=== PATIENT | female | born 1985 | race Caucasian/White ===

== ENCOUNTER 2016-11-25 13:18 | Emergency (ER) | payer OTHER ==
[~2016-11-25] VITALS: Ht 167.6 cm; Wt 100.0 kg
[~2016-11-25 13:18] MED LIST: FLUO20CA4 PO; LAMO100 PO; LEVO125T4 PO; LITH450T PO; LURA1TAB2 PO; METO50TA11 PO
[2016-11-25 13:24] VITALS: BP 168/89; PULSE 50; RESP 18; TEMP 98.4; O2SAT 100
--- NOTE | 2016-11-25 14:34 | PD ---
HPI Chief Complaint: Psychiatric Symptoms Time Seen by Provider: 14:34 Travel History International Travel<30 days: No Contact w/Intl Traveler<30days: No Traveled to known affect area: No History of Present Illness HPI 31-year-old female brought in from local halfway with reports of suicidal ideation. Patient has a history of bipolar disorder and major depression. Patient states she wrote a "threatening letter" and was sent here to be evaluated. Patient also states "I don't want to be Eastman acted". Patient reports a history of swallowing a plastic education Approximately 10 days ago and is concerned that it may be stuck in her abdomen. Patient has chronic histories of constipation but denies nausea, vomiting, or diarrhea or constipation more than usual. Patient states she is hungry. She is tearful. She is allergic to Ceclor and Tylenol. PFSH Past Medical History Bipolar Disorder: Yes Cerebral Palsy: Yes Psychiatric: Yes (See EMR, Depression, OCD, anxiety, Bipolar Disorder) Reproductive: No Immunizations Current: Yes ?: Not Past Surgical History Other Surgery: No Social History Alcohol Use: No Tobacco Use: Yes (a couple today) Substance Use: No Allergies-Medications (Allergen,Severity, Reaction): Coded Allergies: Ceclor (Verified Allergy, Unknown, 07/01/16) Tylenol (Verified Allergy, Unknown, 07/01/16) Reported Meds & Prescriptions Reported Meds & Active Scripts Active Reported Fluoxetine (Fluoxetine HCl) 20 Mg Cap 20 Mg PO DAILY Levothyroxine (Levothyroxine Sodium) 125 Mcg Tab 125 Mcg PO DAILY@0600 Lamictal (Lamotrigine) 100 Mg Tab 200 Mg PO Q12HR Review of Systems Except as stated in HPI: all other systems reviewed are Neg General / Constitutional: No: Fever Eyes: No: Visual changes HENT: No: Headaches Cardiovascular: No: Chest Pain or Discomfort Respiratory: No: Shortness of Breath Gastrointestinal: No: Abdominal Pain Genitourinary: No: Dysuria Musculoskeletal: No: Pain Skin: No Rash Neurologic: No: Weakness Psychiatric: No: Depression Endocrine: No: Polydipsia Hematologic/Lymphatic: No: Easy Bruising Physical Exam Narrative GENERAL: Patient appears somewhat depressed and tearful but otherwise no acute distress. SKIN: Warm and dry. Normal color. Normal turgor. HEAD: Atraumatic. Normocephalic. EYES: Pupils equal and round. No scleral icterus. No injection or drainage. ENT: No nasal bleeding or discharge. Mucous membranes pink and moist. Pharynx is normal. Airway is normal. NECK: Trachea midline. No JVD. CARDIOVASCULAR: Regular rate and rhythm. RESPIRATORY: No accessory muscle use. Clear to auscultation. Breath sounds equal bilaterally. GASTROINTESTINAL: Abdomen soft, non-tender, nondistended. Hepatic and splenic margins not palpable. No CVA tenderness. Normal bowel sounds throughout all quadrants. MUSCULOSKELETAL: Extremities without clubbing, cyanosis, or edema. No obvious deformities. NEUROLOGICAL: Awake and alert. No obvious cranial nerve deficits. Motor grossly within normal limits. Five out of 5 muscle strength in the arms and legs. Normal speech. PSYCHIATRIC: Appropriate mood and affect; insight and judgment normal. Data Data Last Documented VS Vital Signs Date Time Temp Pulse Resp B/P Pulse Ox O2 Delivery O2 Flow Rate FiO2 11/25/16 13:24 98.4 50 18 168/89 100 Room Air Orders Complete Blood Count With Diff (11/25/16 14:39) Comprehensive Metabolic Panel (11/25/16 14:39) Urinalysis - C+S If Indicated (11/25/16 14:39) Drug Screen, Random Urine (11/25/16 14:39) Ed Urine Pregnancytest Poc (11/25/16 14:39) Psych Screen (11/25/16 14:39) Abdomen, Upright Only (11/25/16 14:39) Labs Laboratory Tests Test 11/25/16 15:15 White Blood Count 3.8 TH/MM3 Red Blood Count 4.23 MIL/MM3 Hemoglobin 14.1 GM/DL Hematocrit 41.7 % Mean Corpuscular Volume 98.6 FL Mean Corpuscular Hemoglobin 33.4 PG Mean Corpuscular Hemoglobin 33.9 % Concent Red Cell Distribution Width 14.5 % Platelet Count 106 TH/MM3 Mean Platelet Volume 9.2 FL Neutrophils (%) (Auto) 60.3 % Lymphocytes (%) (Auto) 31.5 % Monocytes (%) (Auto) 5.5 % Eosinophils (%) (Auto) 2.3 % Basophils (%) (Auto) 0.4 % Neutrophils # (Auto) 2.3 TH/MM3 Lymphocytes # (Auto) 1.2 TH/MM3 Monocytes # (Auto) 0.2 TH/MM3 Eosinophils # (Auto) 0.1 TH/MM3 Basophils # (Auto) 0.0 TH/MM3 CBC Comment DIFF FINAL Differential Comment Urine Color YELLOW Urine Turbidity CLEAR Urine pH 6.0 Urine Specific [place] 1.021 Urine Protein NEG mg/dL Urine Glucose (UA) NEG mg/dL Urine Ketones NEG mg/dL Urine Occult Blood NEG Urine Nitrite NEG Urine Bilirubin NEG Urine Urobilinogen LESS THAN 2.0 MG/DL Urine Leukocyte Esterase SMALL Urine RBC LESS THAN 1 /hpf Urine WBC 1 /hpf Urine Squamous Epithelial 2 /hpf Cells Urine Mucus FEW /lpf Microscopic Urinalysis Comment CATH-CULT NOT IND MDM Medical Decision Making Medical Screen Exam Complete: Yes Emergency Medical Condition: Yes Differential Diagnosis Bipolar disorder. Major depression. Suicidal ideation. Complaints of abdominal pain. Question ingestion of foreign body. Narrative Course Patient is medically stable at time of exam. Psychiatric labs ordered per protocol. Abdominal upright films ordered. X-rays are negative for any acute finding or foreign body per radiologist. Labs are within normal limits. Patient is medically clear for psychiatric evaluation. Diagnosis Primary Impression: Major depression, recurrent Qualified Code: F33.1 - Moderate episode of recurrent major depressive disorder Additional Impressions: Suicidal ideations Medical clearance for psychiatric admission Condition: Stable Jarvis Argueta Nov 25, 2016 14:34
--- NOTE | 2016-11-25 15:18 | RADRPT ---
EXAM DATE/TIME: 11/25/2016 15:06 [facility] COMPARISON: No previous studies available for comparison. INDICATIONS : Evaluate for foreign body. Pt swallowed toothbrush cover. MEDICAL HISTORY : Cardiovascular disease. Diabetes mellitus type 2. SURGICAL HISTORY : Back surgery. ENCOUNTER: Initial ACUITY: 2 weeks PAIN SCORE: 0/10 LOCATION: Bilateral Abdomen. FINDINGS: A single erect view of the abdomen demonstrates the lower lungs to be clear. No evidence of free int raperitoneal gas. The visualized bowel loops are unremarkable. No foreign body is identified. CONCLUSION: 1. No foreign body is identified. Jose Villeda MD on November 25, 2016 at 15:16 Board Certified Radiologist. This report was verified electronically.
[2016-11-25 15:30] LABS: AUTOMATED NEUTROPHIL # 2.3 TH/MM3 (1.8-7.7); BASOPHIL % 0.4 % (0.0-2.0); EOSINOPHIL # 0.1 TH/MM3 (0-0.4); EOSINOPHIL % 2.3 % (0.0-4.0); HEMATOCRIT 41.7 % (35.0-46.0); HEMO FLAGS DIFF FINAL; LYMPH % 31.5 % (9.0-44.0); LYMPHOCYTE # 1.2 TH/MM3 (1.0-4.8); MEAN CELL VOLUME 98.6 FL (80.0-100.0); MEAN CORPUSCULAR HEMOGLOBIN 33.4 PG (27.0-34.0); MEAN CORPUSCULAR HGB CONC 33.9 % (32.0-36.0); MONO % 5.5 % (0.0-8.0); NEUT % 60.3 % (16.0-70.0); PLATELET COUNT 106 TH/MM3 (150-450); RED BLOOD COUNT 4.23 MIL/MM3 (4.00-5.30); RED CELL DISTRIBUTION WIDTH 14.5 % (11.6-17.2); WHITE BLOOD COUNT 3.8 TH/MM3 (4.0-11.0)
[2016-11-25 15:31] LABS: BLOOD, URINE NEG (NEG); GLUCOSE,URINE NEG (NEG); KETONE, URINE NEG (NEG); MUCUS URINE FEW /lpf (OCC); NITRITE,URINE NEG (NEG); SQUAMOUS EPITHELIAL CELL URINE 2 /hpf (0-5); URINE COLOR YELLOW (YELLW/STRAW)
[2016-11-25 15:32] LABS: COMMENT (UR) CATH-CULT NOT IND; CULTURE IF INDICATED CATH CULTURE NOT IND
[2016-11-25 15:37] LABS: AMPHETAMINE, URINE NEG (NEG); BARBITURATES, URINE NEG (NEG); COCAINE, URINE NEG (NEG)
[2016-11-25 15:56] LABS: ALKALINE PHOSPHATASE 120 U/L (45-117); TOTAL BILIRUBIN ADULT 0.9 MG/DL (0.2-1.0)
[2016-11-25 15:58] LABS: ALT (GPT) 38 U/L (10-53); ANION GAP 7 MEQ/L (5-15); AST (GOT) 45 U/L (15-37); BICARBONATE 26.7 MEQ/L (21.0-32.0); BLOOD UREA NITROGEN 15 MG/DL (7-18); CHLORIDE 108 MEQ/L (98-107); GLOMERULAR FILTRATION RATE 81 ML/MIN (>89); SODIUM (NA) 142 MEQ/L (136-145)
[2016-11-25 15:59] LABS: POTASSIUM 4.3 MEQ/L (3.5-5.1)
[2016-11-28] MEDS ORDERED: TRAZ100T4 PO (13:10)
== END 2016-11-25 21:41 | disposition home or self-care (01) ==
LOC: NEPC 13:18 → NEPJ 21:41
DX: F33.1 Major depressive disorder, recurrent, moderate (principal); G80.9 Cerebral palsy, unspecified; F17.210 Nicotine dependence, cigarettes, uncomplicated
CPT/HCPCS: 74000; 80053; 80307; 81001; 85025; 99284

== ENCOUNTER 2016-12-22 12:13 | Emergency (ER) | payer OTHER ==
[~2016-12-22] VITALS: Ht 157.5 cm; Wt 95.0 kg
[~2016-12-22 12:13] MED LIST changes: +TRAZ100T4 PO
--- NOTE | 2016-12-22 12:23 | PD ---
HPI Chief Complaint: Psych Symptoms Time Seen by Provider: 12:22 Travel History International Travel<30 days: No Contact w/Intl Traveler<30days: No Traveled to known affect area: No History of Present Illness HPI 31-year-old female brought in by police under the Eastman act. Patient states she got into an argument with her caregiver earlier this morning which "got out of hand". Patient denies physical altercation. She states she wanted her tablet back and the caregiver said no and then they had an argument and the police were called. She denies suicidal or homicidal ideation. She denies any injury or medical problem at this time. Patient is cooperative and pleasant at this time. Patient is allergic to Ceclor and Tylenol. PFSH Past Medical History Bipolar Disorder: Yes Cerebral Palsy: Yes Psychiatric: Yes (See EMR, Depression, OCD, anxiety, Bipolar Disorder) Reproductive: No Immunizations Current: Yes Past Surgical History Other Surgery: No Social History Alcohol Use: No Tobacco Use: Yes (a couple today) Substance Use: No Allergies-Medications (Allergen,Severity, Reaction): Coded Allergies: Ceclor (Verified Allergy, Unknown, 12/22/16) Tylenol (Verified Allergy, Unknown, 12/22/16) Reported Meds & Prescriptions Reported Meds & Active Scripts Active Reported Trazodone (Trazodone HCl) 100 Mg Tab 200 Mg PO HS Metoprolol Succinate ER 24 HR (Metoprolol Succinate) 50 Mg Tab 50 Mg PO DAILY Latuda (Lurasidone) 60 Mg Tab 60 Mg PO DAILY [place] Carbonate ER ([place] Carbonate) 450 Mg Tab 450 Mg PO DAILY Levothyroxine (Levothyroxine Sodium) 125 Mcg Tab 125 Mcg PO DAILY@0600 Lamictal (Lamotrigine) 100 Mg Tab 200 Mg PO Q12HR Fluoxetine (Fluoxetine HCl) 20 Mg Cap 20 Mg PO DAILY Review of Systems Except as stated in HPI: all other systems reviewed are Neg General / Constitutional: No: Fever Eyes: No: Visual changes HENT: No: Headaches Cardiovascular: No: Chest Pain or Discomfort Respiratory: No: Shortness of Breath Gastrointestinal: No: Abdominal Pain Genitourinary: No: Dysuria Musculoskeletal: No: Pain Skin: No Rash Neurologic: No: Weakness Psychiatric: No: Depression Endocrine: No: Polydipsia Hematologic/Lymphatic: No: Easy Bruising Physical Exam Narrative GENERAL: Patient is in no acute distress. SKIN: Warm and dry. Normal color. Normal turgor. HEAD: Atraumatic. Normocephalic. EYES: Pupils equal and round. No scleral icterus. No injection or drainage. ENT: No nasal bleeding or discharge. Mucous membranes pink and moist. Pharynx is clear. NECK: Trachea midline. Supple and nontender. CARDIOVASCULAR: Regular rate and rhythm. RESPIRATORY: No accessory muscle use. Clear to auscultation. Breath sounds equal bilaterally. MUSCULOSKELETAL: Extremities without clubbing, cyanosis, or edema. No obvious deformities. NEUROLOGICAL: Awake and alert. No obvious cranial nerve deficits. Motor grossly within normal limits. Five out of 5 muscle strength in the arms and legs. Normal speech. PSYCHIATRIC: Appropriate mood and affect; insight and judgment normal. Data Data Last Documented VS Vital Signs Date Time Temp Pulse Resp B/P Pulse Ox O2 Delivery O2 Flow Rate FiO2 12/22/16 12:40 61 16 12/22/16 12:27 98.7 178/98 100 Orders Complete Blood Count With Diff (12/22/16 12:31) Comprehensive Metabolic Panel (12/22/16 12:31) Urinalysis - C+S If Indicated (12/22/16 12:31) Ed Urine Pregnancytest Poc (12/22/16 12:31) Psych Screen (12/22/16 12:31) Drug Screen, Random Urine (12/22/16 12:31) Diet Regular Basic (12/22/16 Lunch) Labs Laboratory Tests Test 12/22/16 12:45 White Blood Count 3.3 TH/MM3 Red Blood Count 4.18 MIL/MM3 Hemoglobin 13.7 GM/DL Hematocrit 41.0 % Mean Corpuscular Volume 98.2 FL Mean Corpuscular Hemoglobin 32.7 PG Mean Corpuscular Hemoglobin 33.3 % Concent Red Cell Distribution Width 13.9 % Platelet Count 95 TH/MM3 Mean Platelet Volume 8.7 FL Neutrophils (%) (Auto) 71.7 % Lymphocytes (%) (Auto) 18.8 % Monocytes (%) (Auto) 7.2 % Eosinophils (%) (Auto) 1.8 % Basophils (%) (Auto) 0.5 % Neutrophils # (Auto) 2.3 TH/MM3 Lymphocytes # (Auto) 0.6 TH/MM3 Monocytes # (Auto) 0.2 TH/MM3 Eosinophils # (Auto) 0.1 TH/MM3 Basophils # (Auto) 0.0 TH/MM3 CBC Comment AUTO DIFF Differential Comment AUTO DIFF CONFIRMED Platelet Estimate LOW Platelet Morphology Comment NORMAL Sodium Level 139 MEQ/L Potassium Level 3.9 MEQ/L Chloride Level 107 MEQ/L Carbon Dioxide Level 27.5 MEQ/L Anion Gap 5 MEQ/L Blood Urea Nitrogen 15 MG/DL Creatinine 1.04 MG/DL Estimat Glomerular Filtration 61 ML/MIN Rate Random Glucose 86 MG/DL Calcium Level 9.0 MG/DL Total Bilirubin 0.8 MG/DL Aspartate Amino Transf 50 U/L (AST/SGOT) Alanine Aminotransferase 45 U/L (ALT/SGPT) Alkaline Phosphatase 114 U/L Total Protein 6.4 GM/DL Albumin 3.3 GM/DL [facility] Medical Decision Making Medical Screen Exam Complete: Yes Emergency Medical Condition: Yes Medical Record Reviewed: Yes Differential Diagnosis Eastman act. Impulse control disorder. History of cerebral palsy. History depressive disorder. History of thrombocytopenia. Need for medical clearance for psychiatric evaluation. Narrative Course Patient is cooperative and medically stable at time of exam. Basic psychiatric labs ordered per protocol including CBC, CMP, urinalysis, urine drug screen, and urine test. Diet is ordered for the patient. Patient is medically cleared for psychiatric evaluation. Condition: Stable Jarvis Argueta Dec 22, 2016 12:22
[2016-12-22 12:27] VITALS: BP 178/98; PULSE 61; RESP 18; TEMP 98.7; O2SAT 100
[2016-12-22 13:02] LABS: AUTOMATED NEUTROPHIL # 2.3 TH/MM3 (1.8-7.7); BASOPHIL % 0.5 % (0.0-2.0); EOSINOPHIL # 0.1 TH/MM3 (0-0.4); EOSINOPHIL % 1.8 % (0.0-4.0); LYMPH % 18.8 % (9.0-44.0); LYMPHOCYTE # 0.6 TH/MM3 (1.0-4.8); MEAN CELL VOLUME 98.2 FL (80.0-100.0); MEAN CORPUSCULAR HEMOGLOBIN 32.7 PG (27.0-34.0); MEAN CORPUSCULAR HGB CONC 33.3 % (32.0-36.0); MONO % 7.2 % (0.0-8.0); NEUT % 71.7 % (16.0-70.0); PLATELET COUNT 95 TH/MM3 (150-450); RED BLOOD COUNT 4.18 MIL/MM3 (4.00-5.30); RED CELL DISTRIBUTION WIDTH 13.9 % (11.6-17.2); WHITE BLOOD COUNT 3.3 TH/MM3 (4.0-11.0)
--- NOTE | 2016-12-22 13:04 | PD ---
Physical Exam Date Seen by Provider: Dec 22, 2016 Narrative Patient presents requesting to see a psychiatrist. Data Data Last Documented VS Vital Signs Date Time Temp Pulse Resp B/P Pulse Ox O2 Delivery O2 Flow Rate FiO2 12/22/16 12:40 61 16 12/22/16 12:27 98.7 178/98 100 Orders Complete Blood Count With Diff (12/22/16 12:31) Comprehensive Metabolic Panel (12/22/16 12:31) Urinalysis - C+S If Indicated (12/22/16 12:31) Ed Urine Pregnancytest Poc (12/22/16 12:31) Psych Screen (12/22/16 12:31) Drug Screen, Random Urine (12/22/16 12:31) Diet Regular Basic (12/22/16 Lunch) MDM Supervised Visit with TIAGO: Yes Narrative Course I, Dr. Hillman, have reviewed the advance practice practitioner's documentation and am in agreement, met with the patient face to face, made the diagnosis, and the medical decision making was done by me. *My assessment and Findings: Patient is awake and alert. She seems to be mentally slow. Condition: Stable Delia Hillman MD Dec 22, 2016 13:04
[2016-12-22 13:08] LABS: HEMO FLAGS AUTO DIFF
[2016-12-22 13:11] LABS: ALT (GPT) 45 U/L (10-53); ANION GAP 5 MEQ/L (5-15); AST (GOT) 50 U/L (15-37); BICARBONATE 27.5 MEQ/L (21.0-32.0); BLOOD UREA NITROGEN 15 MG/DL (7-18); CHLORIDE 107 MEQ/L (98-107); GLOMERULAR FILTRATION RATE 61 ML/MIN (>89); POTASSIUM 3.9 MEQ/L (3.5-5.1); SODIUM (NA) 139 MEQ/L (136-145)
[2016-12-22 13:18] LABS: ALKALINE PHOSPHATASE 114 U/L (45-117); TOTAL BILIRUBIN ADULT 0.8 MG/DL (0.2-1.0)
[2016-12-22 13:41] LABS: PLATELET ESTIMATE SMEAR LOW (NORMAL); PLATELET MORPHOLOGY NORMAL (NORMAL); SCAN/DIFF AUTO DIFF CONFIRMED
[2016-12-22 14:52] LABS: BLOOD, URINE NEG (NEG); COMMENT (UR) CULT NOT INDICATED; CULTURE IF INDICATED CULT NOT INDICATED; GLUCOSE,URINE NEG (NEG); HYALINE CAST, URINE 1 /lpf (RARE); KETONE, URINE NEG (NEG); NITRITE,URINE NEG (NEG); PH, URINE 6.5 (5.0-8.5); SQUAMOUS EPITHELIAL CELL URINE 4 /hpf (0-5); URINE COLOR YELLOW (YELLW/STRAW)
[2016-12-22 14:59] LABS: AMPHETAMINE, URINE NEG (NEG); BARBITURATES, URINE NEG (NEG); COCAINE, URINE NEG (NEG)
[2016-12-22 18:09] VITALS: BP 164/89; PULSE 65; RESP 18; O2SAT 97
[2016-12-22 20:17] VITALS: BP 159/77; PULSE 61; RESP 18; O2SAT 98
[2016-12-22 22:06] VITALS: BP 147/65; PULSE 64; RESP 18; O2SAT 97
[2016-12-23 02:00] VITALS: BP 157/80; PULSE 82; RESP 18; O2SAT 98
[2016-12-23 06:10] VITALS: BP_SYST 104; BP_SYST 163; BP_DIAS 50; BP_DIAS 72; PULSE 58; PULSE 60; RESP 18; O2SAT 97; O2SAT 98
--- NOTE | 2016-12-23 10:05 | PD ---
History of Present Illness Chief Complaint: Psychiatric Symptoms Time Seen by Provider: 09:45 Travel History International Travel<30 Days: No Contact w/Intl Traveler<30days: No Known affected area: No Legal Status Legal Status: Involuntary [place]man Act Signed By: Franklin ([id number]) [place]man Act Comment: CERTIFICATE OF PROFESSIONAL INITIATING INVOLUNTARY EXAMINATION12/22/16@1030 History of Present Illness: History of Present Illness HPI 31-year-old female with history of bipolar disorder as well as intellectual disability who brought in by police under a [place]man Act. As per the report the patient was aggressive towards the staff from the [facility] and did not respond to deescalating measures. She threw papers of a desk on the floor and was screaming and yelling. As per EMr she has had one previous admission to [facility] in Jul 2016 for similar complaints. She was evaluated in ED on Nov 2016. Patient was monitored in J pod. She presented no behavioral concerns and no suicidality. This morning she is awake, alert, engaging and cooperative. Speech is clear and logical. There is no evidence of any hallucinations, no delusions and no paranoia. She denies any suicidal or homicidal ideation. She presents with remorse over her behavior and and states " I don't want to fight". She relates that she was upset with the staff because they did not accept a card that she gave her for . She is somewhat anxious over a meeting tomorrow with her director of student services as she is afraid that she may be asked to leave her residence. She reports medication compliance. PFSH Past Medical History Bipolar Disorder: Yes Cerebral Palsy: Yes Psychiatric: Yes (See EMR, Depression, OCD, anxiety, Bipolar Disorder) Reproductive: No Immunizations Current: Yes Tetanus Vaccination: Unknown Influenza Vaccination: No ?: Not LMP: 11/28/2016 : 0 Para: 0 Miscarriage: 0 : 0 Past Surgical History Other Surgery: No Psychiatric History Psychiatric History Hx Psychiatric Treatment: Patient has a history of in-patient psychiatric treatment most recently at [facility] in Jul 2016. was also treated from February 07, 2016 - February 28, 2016 where patient was treated for Major Depression. History of Inpatient Treatment: Yes Guns or firearms in home: No Social History Single female who has been living in a [facility] for the past 4 years. she attends [employer] program 5 days a week. She is originally from [place]. Hx Alcohol Use: No Hx Tobacco Use: Yes (a couple today) Hx Substance Use: No Hx of Substance Use Treatment: No Family Psychiatric History Negative Allergies-Medications (Allergen,Severity, Reaction): Coded Allergies: Ceclor (Verified Allergy, Unknown, 12/22/16) Tylenol (Verified Allergy, Unknown, 12/22/16) Reported Meds & Prescriptions Reported Meds & Active Scripts Active Reported Trazodone (Trazodone HCl) 100 Mg Tab 200 Mg PO HS Metoprolol Succinate ER 24 HR (Metoprolol Succinate) 50 Mg Tab 50 Mg PO DAILY Latuda (Lurasidone) 60 Mg Tab 60 Mg PO DAILY [place] Carbonate ER ([place] Carbonate) 450 Mg Tab 450 Mg PO DAILY Levothyroxine (Levothyroxine Sodium) 125 Mcg Tab 125 Mcg PO DAILY@0600 Lamictal (Lamotrigine) 100 Mg Tab 200 Mg PO Q12HR Fluoxetine (Fluoxetine HCl) 20 Mg Cap 20 Mg PO DAILY Review of Systems Except as stated in HPI: all other systems reviewed are Neg Psychiatric: COMPLAINS OF: Anxiety Exam Alert: Yes [place]: Person (ox4) Mood: Anxious, Calm Affect: Euthymic Speech: Clear, Logical Eye Contact: Normal Memory Intact: Comment (no gross abnormality) Hallucinations: Other (negative) Delusions: No Suicidal: Ideation (deneis any) Homicidal: Ideation (deneis any) Insight/Judgement fair. fair [facility] Medical Decision Making Medical Record Reviewed: Yes Assessment/Plan At this time patient exhibits behavioral control and has not been agitated. She denies any suicidal or homicidal ideation, intent or plan and denies any psychosis. She is requesting to return to her [facility]. She is provided support, allowed venting and discussed positive coping techniques. She does not meet BA criteria Cleared. Lift BA and discharge to [facility]. Orders Complete Blood Count With Diff (12/22/16 12:31) Comprehensive Metabolic Panel (12/22/16 12:31) Urinalysis - C+S If Indicated (12/22/16 12:31) Ed Urine Pregnancytest Poc (12/22/16 12:31) Psych Screen (12/22/16 12:31) Drug Screen, Random Urine (12/22/16 12:31) Diet Regular Basic (12/22/16 Lunch) Diet Regular Basic (12/23/16 Breakfast) Results Vital Signs Date Time Temp Pulse Resp B/P Pulse Ox O2 Delivery O2 Flow Rate FiO2 12/23/16 06:10 58 18 163/72 98 Room Air 12/23/16 02:00 82 18 157/80 98 Room Air 12/22/16 22:06 64 18 147/65 97 Room Air 12/22/16 20:17 61 18 159/77 98 Room Air 12/22/16 18:09 65 18 164/89 97 Room Air 12/22/16 12:40 61 16 12/22/16 12:27 98.7 61 18 178/98 100 Laboratory Tests Test 12/22/16 12/22/16 12:45 14:10 White Blood Count 3.3 Red Blood Count 4.18 Hemoglobin 13.7 Hematocrit 41.0 Mean Corpuscular Volume 98.2 Mean Corpuscular Hemoglobin 32.7 Mean Corpuscular Hemoglobin 33.3 Concent Red Cell Distribution Width 13.9 Platelet Count 95 Mean Platelet Volume 8.7 Neutrophils (%) (Auto) 71.7 Lymphocytes (%) (Auto) 18.8 Monocytes (%) (Auto) 7.2 Eosinophils (%) (Auto) 1.8 Basophils (%) (Auto) 0.5 Neutrophils # (Auto) 2.3 Lymphocytes # (Auto) 0.6 Monocytes # (Auto) 0.2 Eosinophils # (Auto) 0.1 Basophils # (Auto) 0.0 CBC Comment AUTO DIFF Differential Comment AUTO DIFF CONFIRMED Platelet Estimate LOW Platelet Morphology Comment NORMAL Sodium Level 139 Potassium Level 3.9 Chloride Level 107 Carbon Dioxide Level 27.5 Anion Gap 5 Blood Urea Nitrogen 15 Creatinine 1.04 Estimat Glomerular Filtration 61 Rate Random Glucose 86 Calcium Level 9.0 Total Bilirubin 0.8 Aspartate Amino Transf 50 (AST/SGOT) Alanine Aminotransferase 45 (ALT/SGPT) Alkaline Phosphatase 114 Total Protein 6.4 Albumin 3.3 Urine Color YELLOW Urine Turbidity HAZY Urine pH 6.5 Urine Specific [place] 1.012 Urine Protein NEG Urine Glucose (UA) NEG Urine Ketones NEG Urine Occult Blood NEG Urine Nitrite NEG Urine Bilirubin NEG Urine Urobilinogen 4.0 Urine Leukocyte Esterase MOD Urine RBC 3 Urine WBC 2 Urine Squamous Epithelial 4 Cells Urine Hyaline Casts 1 Microscopic Urinalysis Comment CULT NOT INDICATED Urine Opiates Screen NEG Urine Barbiturates Screen NEG Urine Amphetamines Screen NEG Urine Benzodiazepines Screen NEG Urine Cocaine Screen NEG Urine Cannabinoids Screen NEG Diagnosis Primary Impression: Impulse control disorder Additional Impression: Bipolar disorder Psychiatrically Cleared: Yes Med/ Other Pt Specific Info: No Change to Meds Disposition: 01 DISCHARGE HOME Condition: Stable Problem Qualifiers Additional Impression: Bipolar disorder Qualified Code: F31.70 - Bipolar disorder in partial remission, most recent episode unspecified type Cony Reed Dec 23, 2016 10:05
[2016-12-23] MEDS ORDERED: LITHIUM CARBONATE 450 MG CONTROLLED RELEASE TAB PO SCH (10:15)
[2016-12-23] MEDS ORDERED: FLUoxetine HCL 20 MG CAP PO SCH (10:15)
[2016-12-23] MEDS ORDERED: LEVOTHYROXINE SODIUM 125 MCG TAB PO SCH (10:15)
[2016-12-23] MEDS ORDERED: METOPROLOL SUCCINATE 50 MG EXTENDED RELEASE TAB PO SCH (10:15)
[2016-12-23] MEDS ORDERED: lamoTRIgine 100 MG TAB PO SCH (10:15)
[2016-12-23 10:21] VITALS: BP 163/72; PULSE 58; RESP 18; O2SAT 98
== END 2016-12-23 12:20 | disposition home or self-care (01) ==
LOC: NEPA 12:13 → NEPJ 12-23 12:20
DX: F63.9 Impulse disorder, unspecified (principal); F31.9 Bipolar disorder, unspecified; G80.9 Cerebral palsy, unspecified; Z72.0 Tobacco use
CPT/HCPCS: 80053; 80307; 81001; 84703; 85025; 99284

== ENCOUNTER 2017-06-24 16:26 | Emergency (ER) | payer OTHER ==
[~2017-06-24] VITALS: Ht 162.6 cm; Wt 75.0 kg
[2017-06-24 16:29] VITALS: BP 132/75; PULSE 76; RESP 20; TEMP 98.1; O2SAT 98
[2017-06-24 18:05] LABS: ACETAMINOPHEN 2.4 MCG/ML (10.0-30.0); ALT (GPT) 70 U/L (10-53); ANION GAP 8 MEQ/L (5-15); AST (GOT) 88 U/L (15-37); BICARBONATE 25.5 MEQ/L (21.0-32.0); BLOOD UREA NITROGEN 12 MG/DL (7-18); CHLORIDE 106 MEQ/L (98-107); GLOMERULAR FILTRATION RATE 71 ML/MIN (>89); POTASSIUM 3.8 MEQ/L (3.5-5.1); SODIUM (NA) 139 MEQ/L (136-145)
[2017-06-24 18:06] LABS: ALKALINE PHOSPHATASE 145 U/L (45-117); TOTAL BILIRUBIN ADULT 1.6 MG/DL (0.2-1.0)
[2017-06-24 18:12] LABS: ALCOHOL LESS THAN 3 MG/DL (0-5)
[2017-06-24 18:30] LABS: BASOPHIL % 0.3 % (0.0-2.0); EOSINOPHIL # 0.1 TH/MM3 (0-0.4); EOSINOPHIL % 2.1 % (0.0-4.0); HEMATOCRIT 36.7 % (35.0-46.0); HEMO FLAGS DIFF FINAL; LYMPH % 14.1 % (9.0-44.0); LYMPHOCYTE # 0.7 TH/MM3 (1.0-4.8); MEAN CELL VOLUME 101.3 FL (80.0-100.0); MEAN CORPUSCULAR HEMOGLOBIN 35.1 PG (27.0-34.0); MEAN CORPUSCULAR HGB CONC 34.7 % (32.0-36.0); MONO % 7.6 % (0.0-8.0); NEUT % 75.9 % (16.0-70.0); PLATELET COUNT 118 TH/MM3 (150-450); RED BLOOD COUNT 3.63 MIL/MM3 (4.00-5.30); RED CELL DISTRIBUTION WIDTH 15.5 % (11.6-17.2); WHITE BLOOD COUNT 5.3 TH/MM3 (4.0-11.0)
--- NOTE | 2017-06-24 18:30 | PD ---
HPI Chief Complaint: Psychiatric Symptoms Time Seen by Provider: 18:24 Travel History International Travel<30 days: No Contact w/Intl Traveler<30days: No Traveled to known affect area: No History of Present Illness HPI 32 yo female that presents to the ED for evaluation of BA. Patient was [place] acted by police after apparently she was becoming agitated towards staff. Patient lives in a custodial. Patient has a history of cerebral palsy. Patient is almost per wheelchair-bound. She does have some versus on her body which she states are old. She denies any head injury. She has any medical issues. She states that she is not taking any meds for 3 weeks. History is somewhat limited because of patient's mental status and psychiatric illness. Most of the history is obtained from the ED nurse who got the report from ambulance. PFSH Past Medical History Bipolar Disorder: Yes Cerebral Palsy: Yes Psychiatric: Yes (See EMR, Depression, OCD, anxiety, Bipolar Disorder) Reproductive: No Immunizations Current: Yes ?: Not : 0 Para: 0 Miscarriage: 0 : 0 Past Surgical History Other Surgery: No Social History Alcohol Use: No Tobacco Use: Yes (a couple today) Substance Use: No Allergies-Medications (Allergen,Severity, Reaction): Coded Allergies: acetaminophen (Unverified Allergy, Unknown, 06/23/17) cefaclor (Unverified Allergy, Unknown, 06/23/17) Reported Meds & Prescriptions Reported Meds & Active Scripts Active Reported Trazodone (Trazodone HCl) 100 Mg Tab 200 Mg PO HS Metoprolol Succinate ER 24 HR (Metoprolol Succinate) 50 Mg Tab 50 Mg PO DAILY Latuda (Lurasidone) 60 Mg Tab 60 Mg PO DAILY Scott Carbonate ER (Scott Carbonate) 450 Mg Tab 450 Mg PO DAILY Levothyroxine (Levothyroxine Sodium) 125 Mcg Tab 125 Mcg PO DAILY@0600 Lamictal (Lamotrigine) 100 Mg Tab 200 Mg PO Q12HR Fluoxetine (Fluoxetine HCl) 20 Mg Cap 20 Mg PO DAILY Review of Systems Except as stated in HPI: all other systems reviewed are Neg Physical Exam Narrative GENERAL: SKIN: Warm and dry. She does have abrasions to the head that appear to be old. HEAD: Atraumatic. Normocephalic. EYES: Pupils equal and round. No scleral icterus. No injection or drainage. ENT: No nasal bleeding or discharge. Mucous membranes pink and moist. Tongue is midline. No uvula deviation. NECK: Trachea midline. No JVD. CARDIOVASCULAR: Regular rate and rhythm. No murmurs, S3, S4. RESPIRATORY: No accessory muscle use. Clear to auscultation. Breath sounds equal bilaterally. GASTROINTESTINAL: Abdomen soft, non-tender, nondistended. Hepatic and splenic margins not palpable. MUSCULOSKELETAL: Extremities without clubbing, cyanosis, or edema. No obvious deformities. Full range of motion of the upper and lower extremities bilaterally. 2+ pulses bilaterally. She has what appears to be old bruises on the arms and legs. No recent falls. NEUROLOGICAL: Awake and alert. No obvious cranial nerve deficits. Motor grossly within normal limits. Five out of 5 muscle strength in the arms and legs. Normal speech. PSYCHIATRIC: Appropriate mood and affect; insight and judgment normal. Data Data Last Documented VS Vital Signs Date Time Temp Pulse Resp B/P Pulse Ox O2 Delivery O2 Flow Rate FiO2 06/24/17 16:29 98.1 76 20 132/75 98 Orders Complete Blood Count With Diff (06/24/17 16:45) Comprehensive Metabolic Panel (06/24/17 16:45) Psych Screen (06/24/17 16:45) Drug Screen, Random Urine (06/24/17 16:45) Alcohol (Ethanol) (06/24/17 16:45) Salicylates (Aspirin) (06/24/17 16:45) Tylenol (Acetaminophen) (06/24/17 16:45) Scott (Li) (06/24/17 16:52) Labs Laboratory Tests Test 06/24/17 06/24/17 17:10 17:37 Urine Opiates Screen NEG Urine Barbiturates Screen NEG Urine Amphetamines Screen NEG Urine Benzodiazepines Screen NEG Urine Cocaine Screen NEG Urine Cannabinoids Screen NEG Sodium Level 139 MEQ/L Potassium Level 3.8 MEQ/L Chloride Level 106 MEQ/L Carbon Dioxide Level 25.5 MEQ/L Anion Gap 8 MEQ/L Blood Urea Nitrogen 12 MG/DL Creatinine 0.91 MG/DL Estimat Glomerular Filtration 71 ML/MIN Rate Random Glucose 75 MG/DL Calcium Level 9.4 MG/DL Total Bilirubin 1.6 MG/DL Aspartate Amino Transf 88 U/L (AST/SGOT) Alanine Aminotransferase 70 U/L (ALT/SGPT) Alkaline Phosphatase 145 U/L Total Protein 6.7 GM/DL Albumin 3.3 GM/DL Salicylates Level LESS THAN 1.7 MG/DL Acetaminophen Level 2.4 MCG/ML Scott Level 1.3 MEQ/L Ethyl Alcohol Level LESS THAN 3 MG/DL MDM Medical Decision Making Medical Screen Exam Complete: Yes Emergency Medical Condition: Yes Medical Record Reviewed: Yes Interpretation(s) tox is negative BMP Diagram 06/24/17 17:37 LFTS slightly elevated Differential Diagnosis Depression versus suicidal ideation versus anxiety versus adjustment disorder versus mood disorder versus bipolar disorder versus schizophrenia versus paranoid disorder versus psychosis versus substance abuse versus alcohol abuse versus alcohol induced psychosis versus homicidality addition versus cutting versus personality disorder Narrative Course 31-year-old female that presents to the ED for evaluation of psych. Patient was properly examined and was found to have signs and symptoms consistent with psychiatric illness. No sign of acute medical distress. Patient does have some bruises appear to be old. She does have a history of agitation and has been bothered to worse for the residents as well as staffing the custodial where she stays at. No sign of bony injury or deformity. This time we'll do labs. Patient will be medically clear. Okay to be seen by psych. Mental health screening was discussed with the patient. Diagnosis Primary Impression: Bipolar disorder Qualified Code: F31.12 - Bipolar affective disorder, currently manic, moderate Donnie Sheppard Jun 24, 2017 18:30
[2017-06-24] MEDS ORDERED: TRAZ100T6 PO (18:37)
[2017-06-24 18:38] VITALS: BP 167/77; PULSE 66; RESP 17; O2SAT 100
[2017-06-24 20:17] VITALS: BP 117/54; PULSE 66; RESP 18; O2SAT 96
[2017-06-24 20:40] VITALS: BP 160/72; PULSE 64; RESP 18; O2SAT 99
[2017-06-24 22:04] VITALS: BP 122/56; PULSE 63; RESP 18; O2SAT 95
[2017-06-25 02:00] VITALS: BP 143/76; PULSE 63; RESP 17; O2SAT 97
[2017-06-25 06:00] VITALS: BP 126/63; PULSE 66; RESP 18; O2SAT 97
[2017-06-25 11:32] VITALS: BP 119/62; PULSE 96; RESP 20; O2SAT 98
--- NOTE | 2017-06-25 13:50 | PD ---
History of Present Illness Chief Complaint: Psychiatric Symptoms Time Seen by Provider: 13:20 Travel History International Travel<30 Days: No Contact w/Intl Traveler<30days: No Known affected area: No Legal Status Legal Status: Eastman Act Eastman Act Signed By: MARY KAY CATALAN MD [id number] [place] Act Comment: 06/24/2017 2:20 PM History of Present Illness: History of Present Illness HPI 32 yo female with history of bipolar disorder, impulse control disorder and intellectual disability who that presents to the ED for evaluation of BA initiated by her outpatient psychiatrist. The BA alleges that she came to the office bruised, screaming and yelling and threatening staff that came with her as well as letting herself fall to the floor. According to staff she has been throwing herself on the floor sustaining bruises. She reported that she is not taking any medications for 3 weeks but her lithium level was 1.3 meq. The patient has been monitored in J pod for almost 24 hours and has not presented any agitation or aggressive behavior. She is seen with nurse Page . The patient is alert and oriented. Speech is clear. Does not appear to be responding to internal stimuli. No sheri or hypomania. She tells me that " I have been fighting with staff because they do not give me the money they have to give me. I told the staff in front of the doctor that I was going to kill her because I was angry". She then reneges on her statement and states that she wants to be admitted here to the hospital to get her medications adjusted. She denies any suicidality. When discussing options she asked about calling Yolanda to speak with her and she did this in an appropriate manner. Telephone call to Yolanda Kowalski at [phone] at 1400 . Message left. Telephone call again at 16:45. Message left. TC at 1710 from Lee Killian at [facility]. He is requesting that the patient be held here until he can obtain staffing to provide care for the patient. Advised him that she has been medically cleared and the BA has been lifted. TC to Lizz, nurse occupational health and safety manager to update her. If patient is medically cleared and the BA has been lifted the patient's residential home must pick her up. TC to Rich Killian at [phone] to inform him that the patient needs to be picked up from the Ed as she does not meet BA criteria. PFSH Past Medical History Bipolar Disorder: Yes Anxiety: Yes Cerebral Palsy: Yes Diminished Hearing: No Psychiatric: Yes (See EMR, Depression, OCD, anxiety, Bipolar Disorder) Reproductive: No Immunizations Current: Yes ?: Not LMP: 05/2017 : 0 Para: 0 Miscarriage: 0 : 0 Past Surgical History Other Surgery: No Psychiatric History Psychiatric History Hx Psychiatric Treatment: Patient with a history of bipolar disorder, depressive disorder impulse control disorder. Past [facility] admission Jul 302015 for adjustment disorder and July 022015 for bipolar disorder. History of Inpatient Treatment: Yes Guns or firearms in home: No Social History Single female who resides in a [facility]. never . her parents live in [place] but according to patient she has little contact with them. Hx Alcohol Use: No Hx Tobacco Use: No (denies) Hx Substance Use: No Hx of Substance Use Treatment: No Family Psychiatric History Unknown Allergies-Medications (Allergen,Severity, Reaction): Coded Allergies: acetaminophen (Unverified Allergy, Unknown, 06/23/17) cefaclor (Unverified Allergy, Unknown, 06/23/17) Reported Meds & Prescriptions Reported Meds & Active Scripts Active Reported Metoprolol Succinate ER 24 HR (Metoprolol Succinate) 50 Mg Tab 50 Mg PO DAILY Latuda (Lurasidone) 60 Mg Tab 60 Mg PO DAILY [place] Carbonate ER (Makoti Carbonate) 450 Mg Tab 450 Mg PO DAILY Levothyroxine (Levothyroxine Sodium) 125 Mcg Tab 125 Mcg PO DAILY@0600 Lamictal (Lamotrigine) 100 Mg Tab 200 Mg PO Q12HR Trazodone (Trazodone HCl) 100 Mg Tablet 100 Mg PO HS Review of Systems Hematologic/lymphatic: COMPLAINS OF: Bruising Neurologic: COMPLAINS OF: Abnormal gait, Poor Balance Exam Alert: Yes [place]: Person, Place, Situation Mood: Calm Affect: Appropriate Speech: Clear Eye Contact: Indirect Memory Intact: Comment (Not formally tetsted) Hallucinations: Other (Negative) Delusions: No Suicidal: Ideation (Negative) Homicidal: Ideation (Negative) Insight/Judgement Poor.Poor MDM Medical Decision Making Medical Record Reviewed: Yes Assessment/Plan 32 yo female with history of bipolar disorder, impulse control disorder and intellectual disability who that presents to the ED for evaluation of BA initiated by her outpatient psychiatrist. The BA alleges that she came to the office bruised, screaming and yelling and threatening staff that came with her as well as letting herself fall to the floor. We have monitored the patient in ed over several hours and she has not presented any agitation or aggressive behavior. Has not attempted to injure herself. She denies suicidal or homicidal ideation. Does not appear to be manic or hypomanic. Does not meet criteria for BA. I have communicated with staff at chcf I do suspect there is an element of chronic risk related to impulsivity secondary to her borderline intellectual functioning, but this would not be ameliorated by a psychiatric hospitalization. She requires a behavioral plan that addresses her behaviors in the ch[facility]. Lift BA Orders Complete Blood Count With Diff (06/24/17 16:45) Comprehensive Metabolic Panel (06/24/17 16:45) Psych Screen (06/24/17 16:45) Drug Screen, Random Urine (06/24/17 16:45) Alcohol (Ethanol) (06/24/17 16:45) Salicylates (Aspirin) (06/24/17 16:45) Tylenol (Acetaminophen) (06/24/17 16:45) [place] (Li) (06/24/17 16:52) Diet Regular Basic (06/25/17 Breakfast) Diet Regular Basic (06/25/17 Lunch) Results Vital Signs Date Time Temp Pulse Resp B/P Pulse Ox O2 Delivery O2 Flow Rate FiO2 06/25/17 11:32 96 20 119/62 98 Room Air 06/25/17 06:00 66 18 126/63 97 Room Air 06/25/17 02:00 63 17 143/76 97 Room Air 06/24/17 22:04 63 18 122/56 95 Room Air 06/24/17 20:40 64 18 160/72 99 Room Air 06/24/17 20:17 66 18 117/54 96 Room Air 06/24/17 18:38 66 17 167/77 100 Room Air 06/24/17 16:29 98.1 76 20 132/75 98 Laboratory Tests Test 06/24/17 06/24/17 17:10 17:37 Urine Opiates Screen NEG Urine Barbiturates Screen NEG Urine Amphetamines Screen NEG Urine Benzodiazepines Screen NEG Urine Cocaine Screen NEG Urine Cannabinoids Screen NEG White Blood Count 5.3 Red Blood Count 3.63 Hemoglobin 12.7 Hematocrit 36.7 Mean Corpuscular Volume 101.3 Mean Corpuscular Hemoglobin 35.1 Mean Corpuscular Hemoglobin 34.7 Concent Red Cell Distribution Width 15.5 Platelet Count 118 Mean Platelet Volume 9.0 Neutrophils (%) (Auto) 75.9 Lymphocytes (%) (Auto) 14.1 Monocytes (%) (Auto) 7.6 Eosinophils (%) (Auto) 2.1 Basophils (%) (Auto) 0.3 Neutrophils # (Auto) 4.0 Lymphocytes # (Auto) 0.7 Monocytes # (Auto) 0.4 Eosinophils # (Auto) 0.1 Basophils # (Auto) 0.0 CBC Comment DIFF FINAL Differential Comment Sodium Level 139 Potassium Level 3.8 Chloride Level 106 Carbon Dioxide Level 25.5 Anion Gap 8 Blood Urea Nitrogen 12 Creatinine 0.91 Estimat Glomerular Filtration 71 Rate Random Glucose 75 Calcium Level 9.4 Total Bilirubin 1.6 Aspartate Amino Transf 88 (AST/SGOT) Alanine Aminotransferase 70 (ALT/SGPT) Alkaline Phosphatase 145 Total Protein 6.7 Albumin 3.3 Salicylates Level LESS THAN 1.7 Acetaminophen Level 2.4 [place] Level 1.3 Ethyl Alcohol Level LESS THAN 3 Diagnosis Primary Impression: Bipolar disorder Additional Impression: Impulse control disorder Psychiatrically Cleared: Yes Med/ Other Pt Specific Info: No Change to Meds Disposition: 01 DISCHARGE HOME Condition: Stable Problem Qualifiers Primary Impression: Bipolar disorder Qualified Code: F31.12 - Bipolar affective disorder, currently manic, moderate Cony Reed [facility] Jun 25, 2017 13:50
[2017-06-25 15:19] VITALS: BP 119/62
== END 2017-06-25 18:50 | disposition home or self-care (01) ==
LOC: NEDAMB 16:26 → NEPJ 06-25 18:50
DX: F31.12 Bipolar disorder, current episode manic without psychotic features, moderate (principal); G80.9 Cerebral palsy, unspecified; Z72.0 Tobacco use; Z86.59 Personal history of other mental and behavioral disorders
CPT/HCPCS: 80053; 80178; 80307; 85025; 99284

== ENCOUNTER 2018-01-28 20:32 | Emergency (ER) | payer OTHER ==
[~2018-01-28] VITALS: Ht 157.5 cm; Wt 105.0 kg
[~2018-01-28 20:32] MED LIST changes: -FLUO20CA4 PO; +METO1TAB9 PO; -METO50TA11 PO; +TRAZ100T10 PO; -TRAZ100T4 PO
[2018-01-28 22:02] VITALS: BP 139/65; PULSE 51; RESP 15; TEMP 98.4; O2SAT 100
--- NOTE | 2018-01-28 22:10 | PD ---
HPI Chief Complaint: Psychiatric Symptoms Time Seen by Provider: 21:48 Travel History International Travel<30 days: No Contact w/Intl Traveler<30days: No Traveled to known affect area: No History of Present Illness HPI 32-year-old white female presents emergency department under [place]man act by PD. Patient lives in a custodial. She had gone into an argument with another housemate. The patient called 911 had made threatening statements. Patient stated that she was going to kill her housemate with a knife even though she does not have access to one patient states that she is truly not homicidal or suicidal. She was only angry at this person.. Patient reports to be compliant with her medications. No toxic ingestions. PFSH Past Medical History Bipolar Disorder: Yes Anxiety: Yes Cerebral Palsy: Yes Diminished Hearing: No Psychiatric: Yes (See EMR, Depression, OCD, anxiety, Bipolar Disorder) Reproductive: No Immunizations Current: Yes : 0 Para: 0 Miscarriage: 0 : 0 Past Surgical History Other Surgery: No Social History Alcohol Use: No Tobacco Use: No (denies) Substance Use: No Allergies-Medications (Allergen,Severity, Reaction): Coded Allergies: acetaminophen (Unverified Allergy, Unknown, 06/23/17) cefaclor (Unverified Allergy, Unknown, 06/23/17) Reported Meds & Prescriptions Reported Meds & Active Scripts Active Reported Metoprolol Succinate ER 24 HR (Metoprolol Succinate) 50 Mg Tab 50 Mg PO DAILY Latuda (Lurasidone) 60 Mg Tab 60 Mg PO DAILY [place] Carbonate ER ([place] Carbonate) 450 Mg Tab 450 Mg PO DAILY Levothyroxine (Levothyroxine Sodium) 125 Mcg Tab 125 Mcg PO DAILY@0600 Lamictal (Lamotrigine) 100 Mg Tab 200 Mg PO Q12HR Trazodone (Trazodone HCl) 100 Mg Tablet 100 Mg PO HS Review of Systems General / Constitutional: No: Fever Eyes: No: Visual changes HENT: No: Headaches Cardiovascular: No: Chest Pain or Discomfort Respiratory: No: Shortness of Breath Gastrointestinal: No: Abdominal Pain Genitourinary: No: Dysuria Musculoskeletal: No: Pain Skin: No Rash Neurologic: No: Weakness Psychiatric: Positive: Mood Disorder, No: Anxiety, Depression, Suicidal Ideations, Disorder of Thought, Substance Abuse, Homicidal Ideation Endocrine: No: Polydipsia Hematologic/Lymphatic: No: Easy Bruising Physical Exam Narrative GENERAL: Well-nourished, well-developed patient. SKIN: Warm and dry. HEAD: Normocephalic and atraumatic. EYES: No scleral icterus. No injection or drainage. Patient has strabismus of the left eye medial deviation. ENT: No nasal drainage noted. Mucous membranes pink. Airway patent. NECK: Supple, trachea midline. Moves head freely without obvious discomfort. CARDIOVASCULAR: Regular rate and rhythm without murmurs, gallops, or rubs. RESPIRATORY: Breath sounds equal bilaterally. No accessory muscle use. GASTROINTESTINAL: Abdomen soft, non-tender, nondistended. EXTREMITIES: No cyanosis or edema. BACK: Nontender without obvious deformity. No CVA tenderness. NEURO: Patient is alert and oriented. no sensorimotor deficits. Nonfocal. Normal speech. PSYCH: No delusions. No auditory or visual hallucinations. Data Data Last Documented VS Vital Signs Date Time Temp Pulse Resp B/P (MAP) Pulse Ox O2 Delivery O2 Flow Rate FiO2 01/28/18 22:02 98.4 51 15 139/65 (89) 100 Orders Orders Complete Blood Count With Diff (01/28/18 22:01) Comprehensive Metabolic Panel (01/28/18 22:01) Thyroid Stimulating Hormone (01/28/18 22:01) Valproic Acid (Depakene) (01/28/18 22:01) Psych Screen (01/28/18 22:01) Drug Screen, Random Urine (01/28/18 22:01) Alcohol (Ethanol) (01/28/18 22:01) Ed Urine Pregnancytest Poc (01/28/18 22:01) [place] (Li) (01/28/18 22:03) Labs Laboratory Tests Test 01/28/18 22:35 White Blood Count 2.7 TH/MM3 Red Blood Count 3.56 MIL/MM3 Hemoglobin 11.4 GM/DL Hematocrit 34.3 % Mean Corpuscular Volume 96.6 FL Mean Corpuscular Hemoglobin 32.1 PG Mean Corpuscular Hemoglobin Concent 33.2 % Red Cell Distribution Width 16.0 % Platelet Count 123 TH/MM3 Mean Platelet Volume 9.0 FL Neutrophils (%) (Auto) 56.7 % Lymphocytes (%) (Auto) 30.4 % Monocytes (%) (Auto) 8.5 % Eosinophils (%) (Auto) 3.9 % Basophils (%) (Auto) 0.5 % Neutrophils # (Auto) 1.5 TH/MM3 Lymphocytes # (Auto) 0.8 TH/MM3 Monocytes # (Auto) 0.2 TH/MM3 Eosinophils # (Auto) 0.1 TH/MM3 Basophils # (Auto) 0.0 TH/MM3 CBC Comment DIFF FINAL Differential Comment Blood Urea Nitrogen 13 MG/DL Creatinine 0.73 MG/DL Random Glucose 87 MG/DL Total Protein 6.4 GM/DL Albumin 3.0 GM/DL Calcium Level 9.0 MG/DL Alkaline Phosphatase 136 U/L Aspartate Amino Transf (AST/SGOT) 48 U/L Alanine Aminotransferase (ALT/SGPT) 32 U/L Total Bilirubin 0.5 MG/DL Sodium Level 142 MEQ/L Potassium Level 4.2 MEQ/L Chloride Level 110 MEQ/L Carbon Dioxide Level 25.7 MEQ/L Anion Gap 6 MEQ/L Estimat Glomerular Filtration Rate 92 ML/MIN Thyroid Stimulating Hormone 3rd Gen 5.410 uIU/ML Valproic Acid (Depakene) Level 4 MCG/ML [place] Level 0.9 MEQ/L Ethyl Alcohol Level LESS THAN 3 MG/DL [facility] Medical Decision Making Medical Screen Exam Complete: Yes Emergency Medical Condition: Yes Medical Record Reviewed: Yes Interpretation(s) Laboratory Tests Test 01/28/18 22:35 White Blood Count 2.7 TH/MM3 Red Blood Count 3.56 MIL/MM3 Hemoglobin 11.4 GM/DL Hematocrit 34.3 % Mean Corpuscular Volume 96.6 FL Mean Corpuscular Hemoglobin 32.1 PG Mean Corpuscular Hemoglobin Concent 33.2 % Red Cell Distribution Width 16.0 % Platelet Count 123 TH/MM3 Mean Platelet Volume 9.0 FL Neutrophils (%) (Auto) 56.7 % Lymphocytes (%) (Auto) 30.4 % Monocytes (%) (Auto) 8.5 % Eosinophils (%) (Auto) 3.9 % Basophils (%) (Auto) 0.5 % Neutrophils # (Auto) 1.5 TH/MM3 Lymphocytes # (Auto) 0.8 TH/MM3 Monocytes # (Auto) 0.2 TH/MM3 Eosinophils # (Auto) 0.1 TH/MM3 Basophils # (Auto) 0.0 TH/MM3 CBC Comment DIFF FINAL Differential Comment Blood Urea Nitrogen 13 MG/DL Creatinine 0.73 MG/DL Random Glucose 87 MG/DL Total Protein 6.4 GM/DL Albumin 3.0 GM/DL Calcium Level 9.0 MG/DL Alkaline Phosphatase 136 U/L Aspartate Amino Transf (AST/SGOT) 48 U/L Alanine Aminotransferase (ALT/SGPT) 32 U/L Total Bilirubin 0.5 MG/DL Sodium Level 142 MEQ/L Potassium Level 4.2 MEQ/L Chloride Level 110 MEQ/L Carbon Dioxide Level 25.7 MEQ/L Anion Gap 6 MEQ/L Estimat Glomerular Filtration Rate 92 ML/MIN Thyroid Stimulating Hormone 3rd Gen 5.410 uIU/ML Valproic Acid (Depakene) Level 4 MCG/ML [place] Level 0.9 MEQ/L Ethyl Alcohol Level LESS THAN 3 MG/DL Differential Diagnosis MDM: High Differential diagnoses: Schizophrenia, schizoaffective disorder, bipolar, anxiety, depression, adjustment reaction, mood disorder NOS, ODD, depressive disorder NOS, dementia, dementia with agitation, psychosis NOS, substance induced mood disorder, DMDD, Asperger syndrome, infection,electrolyte abnormality, malingering. Narrative Course Mental health screening discussed with the patient. Psychiatric screen ordered. The patient has been medically cleared. This medical clearance for psychiatric admission Diagnosis Primary Impression: Medical clearance for psychiatric admission Condition: Stable Satya Troncoso Jan 28, 2018 22:10
[2018-01-28 22:57] LABS: AUTOMATED NEUTROPHIL # 1.5 TH/MM3 (1.8-7.7); BASOPHIL % 0.5 % (0.0-2.0); EOSINOPHIL # 0.1 TH/MM3 (0-0.4); EOSINOPHIL % 3.9 % (0.0-4.0); HEMATOCRIT 34.3 % (35.0-46.0); HEMOGLOBIN 11.4 GM/DL (11.6-15.3); LYMPH % 30.4 % (9.0-44.0); LYMPHOCYTE # 0.8 TH/MM3 (1.0-4.8); MEAN CELL VOLUME 96.6 FL (80.0-100.0); MEAN CORPUSCULAR HEMOGLOBIN 32.1 PG (27.0-34.0); MEAN CORPUSCULAR HGB CONC 33.2 % (32.0-36.0); MONO % 8.5 % (0.0-8.0); MONOCYTE # 0.2 TH/MM3 (0-0.9); NEUT % 56.7 % (16.0-70.0); PLATELET COUNT 123 TH/MM3 (150-450); RED BLOOD COUNT 3.56 MIL/MM3 (4.00-5.30); WHITE BLOOD COUNT 2.7 TH/MM3 (4.0-11.0)
[2018-01-28 23:26] LABS: AST (GOT) 48 U/L (15-37); BICARBONATE 25.7 MEQ/L (21.0-32.0); BLOOD UREA NITROGEN 13 MG/DL (7-18); CHLORIDE 110 MEQ/L (98-107); CREATININE 0.73 MG/DL (0.50-1.00); GLOMERULAR FILTRATION RATE 92 ML/MIN (>89); GLUCOSE,RANDOM 87 MG/DL (74-106); SODIUM (NA) 142 MEQ/L (136-145)
[2018-01-28 23:37] LABS: ALKALINE PHOSPHATASE 136 U/L (45-117); ALT (GPT) 32 U/L (10-53); TOTAL BILIRUBIN ADULT 0.5 MG/DL (0.2-1.0); TOTAL PROTEIN 6.4 GM/DL (6.4-8.2)
[2018-01-29 05:55] VITALS: BP 136/77; PULSE 66; RESP 20; TEMP 98.2; O2SAT 98
[2018-01-29 07:45] VITALS: BP 166/75; PULSE 55; RESP 16; TEMP 98.3; O2SAT 99
--- NOTE | 2018-01-29 11:01 | PD ---
Physical Exam Date Seen by Provider: Jan 29, 2018 Time Seen by Provider: 10:58 Narrative 32-year-old local resident of a custodial who was Eastman acted last evening, Patient was medically cleared for psychiatric evaluation. Patient was seen by psychiatric staff and deemed psychiatrically stable for discharge back to her custodial. Follow-up will be based on psychiatric note. Patient remains medically stable at this time. Data Data Last Documented VS Vital Signs Date Time Temp Pulse Resp B/P (MAP) Pulse Ox O2 Delivery O2 Flow Rate FiO2 01/29/18 07:45 55 16 01/29/18 07:45 98.3 166/75 (105) 99 Room Air Orders Orders Complete Blood Count With Diff (01/28/18 22:01) Comprehensive Metabolic Panel (01/28/18 22:01) Thyroid Stimulating Hormone (01/28/18 22:01) Valproic Acid (Depakene) (01/28/18 22:01) Psych Screen (01/28/18 22:01) Drug Screen, Random Urine (01/28/18 22:01) Alcohol (Ethanol) (01/28/18 22:01) Ed Urine Pregnancytest Poc (01/28/18 22:01) [place] (Li) (01/28/18 22:03) Diet Regular Basic (01/29/18 Breakfast) Labs Laboratory Tests Test 01/28/18 22:35 White Blood Count 2.7 TH/MM3 Red Blood Count 3.56 MIL/MM3 Hemoglobin 11.4 GM/DL Hematocrit 34.3 % Mean Corpuscular Volume 96.6 FL Mean Corpuscular Hemoglobin 32.1 PG Mean Corpuscular Hemoglobin Concent 33.2 % Red Cell Distribution Width 16.0 % Platelet Count 123 TH/MM3 Mean Platelet Volume 9.0 FL Neutrophils (%) (Auto) 56.7 % Lymphocytes (%) (Auto) 30.4 % Monocytes (%) (Auto) 8.5 % Eosinophils (%) (Auto) 3.9 % Basophils (%) (Auto) 0.5 % Neutrophils # (Auto) 1.5 TH/MM3 Lymphocytes # (Auto) 0.8 TH/MM3 Monocytes # (Auto) 0.2 TH/MM3 Eosinophils # (Auto) 0.1 TH/MM3 Basophils # (Auto) 0.0 TH/MM3 CBC Comment DIFF FINAL Differential Comment Blood Urea Nitrogen 13 MG/DL Creatinine 0.73 MG/DL Random Glucose 87 MG/DL Total Protein 6.4 GM/DL Albumin 3.0 GM/DL Calcium Level 9.0 MG/DL Alkaline Phosphatase 136 U/L Aspartate Amino Transf (AST/SGOT) 48 U/L Alanine Aminotransferase (ALT/SGPT) 32 U/L Total Bilirubin 0.5 MG/DL Sodium Level 142 MEQ/L Potassium Level 4.2 MEQ/L Chloride Level 110 MEQ/L Carbon Dioxide Level 25.7 MEQ/L Anion Gap 6 MEQ/L Estimat Glomerular Filtration Rate 92 ML/MIN Thyroid Stimulating Hormone 3rd Gen 5.410 uIU/ML Valproic Acid (Depakene) Level 4 MCG/ML [place] Level 0.9 MEQ/L Ethyl Alcohol Level LESS THAN 3 MG/DL MDM Medical Record Reviewed: Yes Supervised Visit with TIAGO: Yes Narrative Course 32-year-old local resident of a custodial who was [place]man acted last evening, Patient was medically cleared for psychiatric evaluation. Patient was seen by psychiatric staff and deemed psychiatrically stable for discharge back to her custodial. Follow-up will be based on psychiatric note. Patient remains medically stable at this time. Diagnosis Primary Impression: Medical clearance for psychiatric admission Patient Instructions: General Instructions Disposition: DISCHARGE HOME Condition: Stable Jarvis Argueta Jan 29, 2018 11:00
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
[2018-01-29 12:39] VITALS: BP 151/65; PULSE 50; RESP 19; TEMP 98.3; O2SAT 99
== END 2018-01-29 16:18 | disposition home or self-care (01) ==
LOC: NEPD 20:32
DX: F31.9 Bipolar disorder, unspecified (principal); R41.83 Borderline intellectual functioning; F63.9 Impulse disorder, unspecified; G80.9 Cerebral palsy, unspecified; F42.9 Obsessive-compulsive disorder, unspecified; Z88.8 Allergy status to other drugs, medicaments and biological substances; Z79.899 Other long term (current) drug therapy
CPT/HCPCS: 80053; 80164; 80178; 80307; 84443; 84703; 85025; 99283